=== PATIENT | female | born 1960 | race Caucasian/White ===

== ENCOUNTER 2019-05-30 | Outpatient (CLI) | payer OTHER | END 2019-05-30 07:45 | disposition home or self-care (01) ==

== ENCOUNTER 2020-02-05 01:42 | Emergency (ER) | payer OTHER ==
[2020-02-05 01:48] VITALS: BP 115/65
--- NOTE | 2020-02-05 01:54 | ED Physician Documentation ---
History of Present Illness - Stated complaint Stated Complaint: RT LEG PX/FALL - Chief complaint Chief Complaint: General - History obtained from History obtained from: Patient (Patient is a 59-year-old female who tripped and fell and landed on her right lower extremity she is complaining of right lower extremity pain reports she is unable to bear weight. Denies any head or neck pain denies any loss of consciousness.) Review of Systems Constitutional: reports: Reviewed and negative Eyes: reports: Reviewed and negative Ears: reports: Reviewed and negative Nose: reports: Reviewed and negative Throat: reports: Reviewed and negative Cardiac: reports: Reviewed and negative Respiratory: reports: Reviewed and negative GI: reports: Reviewed and negative : reports: Reviewed and negative Skin: reports: Reviewed and negative Musculoskeletal: reports: Extremity pain Neurologic: reports: Reviewed and negative Psychiatric: reports: Reviewed and negative Endocrine: reports: Reviewed and negative Immunocompromised: reports: Reviewed and negative PD PAST MEDICAL HISTORY - Past Medical History Past Medical History: Yes Cardiovascular: None, Hypertension Respiratory: None - Past Surgical History 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 - Present Medications Home Medications: Ambulatory Orders Medication Instructions Recorded Confirmed Dicyclomine HCl [Bentyl] 20 mg PO Q6H PRN #20 tablet 01/21/16 Hydrocodone/Acetaminophen [[place] 1 each PO Q6H PRN #20 tablet 01/21/16 5-325 Tablet] amLODIPine [Norvasc] 5 mg PO DAILY 01/21/16 01/21/16 Hydrocodone/Acetaminophen [[place] 1 each PO Q6HR PRN #10 tablet 02/05/20 5-325 Tablet] Ondansetron Odt [Zofran Odt] 4 mg TL Q6H PRN #10 tablet 02/05/20 - Allergies Allergies/Adverse Reactions: Allergies Allergy/AdvReac Type Severity Reaction Status Date / Time No Known Drug Allergies Allergy Verified 02/05/20 01:46 - Social History Does the pt smoke?: Yes Smoking Status: Current every day smoker Does the pt drink ETOH?: No Does the pt have substance abuse?: No - POLST Patient has POLST: No PD ED PE NORMAL - Vitals Vital signs reviewed: Yes - General General: Alert and oriented X 3, No acute distress, Well developed/nourished - HEENT HEENT: Atraumatic, PERRL, Moist mucous membranes - Neck Neck: Supple, no meningeal sign - Cardiac Cardiac: RRR, No murmur, Strong equal pulses - Respiratory Respiratory: No respiratory distress, Clear bilaterally - Abdomen Abdomen: Normal bowel sounds, Soft, Non tender, Non distended - Back Back: No CVA TTP, No spinal TTP - Derm Derm: Normal color, Warm and dry, No rash - Extremities Extremities: No deformity, Other (Tenderness over the right proximal fibular head no gross deformity compartments are soft palpable DP and PT pulses cap refill less than 2 seconds sensations intact to light touch unable to bear weight) - Neuro Neuro: Alert and oriented X 3, photographic intelligence officer 2-12 intact, No motor deficit, No sensory deficit, Normal speech - Psych Psych: Normal mood, Normal affect Results - Vitals Vitals: Vital Signs - 24 hr 02/05/20 02/05/20 02/05/20 01:46 01:59 02:04 Temperature 37 C Heart Rate 79 Respiratory 16 18 18 Rate Blood Pressure 115/65 O2 Saturation 94 02/05/20 03:11 Temperature Heart Rate Respiratory 17 Rate Blood Pressure O2 Saturation Oxygen O2 Source Room air Procedures - Splint (location) right Splint applied by: Tech Type of splint: Fiberglass, Long leg, Posterior Other: Patient tolerated well, No complications, Neurovascular intact, Good alignment, Crutches provided PD MEDICAL DECISION MAKING - ED course Complexity details: considered differential (History and exam are concerning for right proximal fibular head fracture.), d/w patient, other (Patient reexamined and updated on her imaging imaging confirms suspicion of fibular head injury it shows a Right proximal fibular head nondisplaced oblique fracture.Patient will be immobilized in Ortho-Glass splint posterior and kept nonweightbearing until she follows up with orthopedic surgery crutches provided for the patient) Departure - Departure Disposition: 01 Home, Self Care Clinical Impression: Fibula fracture Qualifiers: Encounter type: initial encounter Fibula location: proximal Fracture type: closed Fracture morphology: other fracture Laterality: right Qualified Code(s): S82.831A - Other fracture of upper and lower end of right fibula, initial encounter for closed fracture Condition: Stable Instructions: ED Fx Lower Ext Follow-Up: Marisa Kimball ARNP, [facility] [Primary Care Provider] - [facility] [Provider Group] - 02/05/20 Prescriptions: Hydrocodone/Acetaminophen [[place] 5-325 Tablet] 1 each PO Q6HR PRN #10 tablet PRN Reason: Pain Ondansetron Odt [Zofran Odt] 4 mg TL Q6H PRN #10 tablet PRN Reason: Nausea / Vomiting Comments: call ortho today to schedule a follow up, use crutches and splint until evaluated by orthopedic surgeon or your primary care provider. Discharge Date/Time: 02/05/20 03:12
--- NOTE | 2020-02-05 02:33 | XRAY Report ---
Reason: pain Procedure Date: 02/05/2020 Accession Number: [id number] / [id number] Procedure: XR - Tib/Fib RT CPT Code: Final Report FULL RESULT: EXAM: RIGHT TIBIA/FIBULA AND ANKLE RADIOGRAPHY EXAM DATE: 02/05/2020 02:23 AM CLINICAL HISTORY: Right lower leg and ankle pain, injury. COMPARISON: LEG LOWER RT 02/05/2020 2:01 AM. TECHNIQUE: 3 views of the ankle and 2 views of the lower leg. FINDINGS: Bones: Nondisplaced oblique fracture of the right proximal fibular metaphysis. No acute fracture in the ankle identified. Possible distal fibular remote fracture. Joints: No knee or ankle malalignment. Soft Tissues: Normal. No soft tissue swelling. IMPRESSION: 1. Nondisplaced oblique fracture of the right proximal fibular metaphysis. 2. No acute fracture seen in the ankle. RADIA
--- NOTE | 2020-02-05 02:33 | XRAY Report ---
Reason: pain Procedure Date: 02/05/2020 Accession Number: [id number] / [id number] Procedure: XR - Ankle 3 View RT CPT Code: Final Report FULL RESULT: EXAM: RIGHT TIBIA/FIBULA AND ANKLE RADIOGRAPHY EXAM DATE: 02/05/2020 02:23 AM CLINICAL HISTORY: Right lower leg and ankle pain, injury. COMPARISON: LEG LOWER RT 02/05/2020 2:01 AM. TECHNIQUE: 3 views of the ankle and 2 views of the lower leg. FINDINGS: Bones: Nondisplaced oblique fracture of the right proximal fibular metaphysis. No acute fracture in the ankle identified. Possible distal fibular remote fracture. Joints: No knee or ankle malalignment. Soft Tissues: Normal. No soft tissue swelling. IMPRESSION: 1. Nondisplaced oblique fracture of the right proximal fibular metaphysis. 2. No acute fracture seen in the ankle. RADIA
[2020-02-05] MEDS: HYDROcod/ACETAM 5/325 MG TABLET PO STA (02:46)
== END 2020-02-05 03:12 | disposition home or self-care (01) ==
LOC: ED 01:42
DX: S82.831A Other fracture of upper and lower end of right fibula, initial encounter for closed fracture (principal); W18.39XA Other fall on same level, initial encounter; I10 Essential (primary) hypertension; F17.210 Nicotine dependence, cigarettes, uncomplicated
CPT/HCPCS: 29505; 73590; 73610; 99283; A9270

== ENCOUNTER 2020-03-14 10:12 | Outpatient (CLI) | payer OTHER ==
--- NOTE | 2020-03-15 09:18 | XRAY Report ---
Reason: RIGHT PROXIMAL TIBIA FRACTURE Procedure Date: 03/14/2020 Accession Number: [id number] / [id number] Procedure: WCP - Tib/Fib RT CPT Code: Final Report FULL RESULT: EXAM: RIGHT TIBIA/FIBULA RADIOGRAPHY EXAM DATE: 03/14/2020 10:12 AM. CLINICAL HISTORY: RIGHT PROXIMAL TIBIA FRACTURE. COMPARISON: LEG LOWER RT 02/05/2020 2:01 AM. TECHNIQUE: 2 views. FINDINGS: Bones: Right fibular neck fracture with some interval callus formation. Fracture line remains visible. No significant displacement. No additional fracture demonstrated. Joints: The visualized knee and ankle joints are normal. No effusions. Soft Tissues: Normal. No soft tissue swelling. IMPRESSION: Partial healing of right fibular neck fracture. RADIA
== END 2020-03-14 10:13 | disposition home or self-care (01) ==
LOC: DI.WCP 10:12
PROVIDERS: ATTEND Orthopaedic Surgery
DX: S82.831D Other fracture of upper and lower end of right fibula, subsequent encounter for closed fracture with routine healing (principal)

== ENCOUNTER 2023-04-18 10:04 | Outpatient (CLI) | payer BC | END 2023-04-18 23:59 | disposition left against medical advice (07) | LOC: EMS 10:04 | DX: R06.02 Shortness of breath (principal); R61 Generalized hyperhidrosis; R42 Dizziness and giddiness; R23.2 Flushing ==

== ENCOUNTER 2023-04-18 10:48 | Emergency (ER) | payer BC, OTHER ==
--- NOTE | 2023-04-18 12:09 | XRAY Report ---
PROCEDURE: Chest 1 View X-Ray INDICATIONS: Chest Pain TECHNIQUE: One view of the chest was acquired. COMPARISON: Chest x-ray 01/21/2016 FINDINGS: Surgical changes and devices: Left axillary clips. Lungs and pleura: No pleural effusions or pneumothorax. Lungs are clear. Lungs are hyperexpanded suggestive of COPD. Mediastinum: Mediastinal contours appear normal. Heart size is normal. Bones and chest wall: No suspicious bony lesions. Overlying soft tissues appear unremarkable. IMPRESSION: No acute cardiopulmonary process. Reviewed by: Mary Matthews MD on 04/18/2023 12:08 PM PDT Approved by: Mary Matthews MD on 04/18/2023 12:08 PM PDT Station ID: [id number]
[2023-04-18 12:10] LABS: BASOPHILS # (AUTO) 0.1 10^3/uL (0.0-0.1); BASOPHILS % (AUTO) 0.7 %; EOSINOPHILS # (AUTO) 0.1 10^3/uL (0.0-0.7); EOSINOPHILS % (AUTO) 0.6 %; HCT - HEMATOCRIT 43.9 % (37.0-47.0); HGB - HEMOGLOBIN 14.7 g/dL (12.0-16.0); LYMPHOCYTES % (AUTO) 22.7 %; MEAN CORPUSCULAR HGB CONC 33.5 g/dL (32.0-36.0); MEAN CORPUSCULAR VOLUME 95.4 fL (81.0-99.0); MEAN PLATELET VOLUME 8.4 fL (7.9-10.8); MONOCYTES # (AUTO) 0.8 10^3/uL (0.0-1.0); MONOCYTES % (AUTO) 9.3 %; NEUTROPHILS # (AUTO) 5.7 10^3/uL (1.5-6.6); NEUTROPHILS % (AUTO) 66.4 %; PLT - PLATELET COUNT 299 10^3/uL (130-450); RED CELL DISTRIBUTION WIDTH 12.1 % (12.0-15.0); WHITE BLOOD COUNT 8.6 x10^3/uL (4.8-10.8)
--- NOTE | 2023-04-18 12:18 | ED Physician Documentation ---
History of Present Illness - Stated complaint Stated Complaint: BRIELLEA/ROXANNA - Chief complaint Chief Complaint: Resp - Additonal information Additional information: 62-year-old female presents the emergency department for evaluation of feeling generally unwell. States that about 3 days ago she began having some dry cough congestion and thought she had a head cold but this morning she developed sudden onset rigors and had a difficult time breathing. She states 12 years ago she had a hypertensive crisis that resulted in a heart attack. Her symptoms today were similar to then. Patient is a daily tobacco user 1 pack/day. She also drinks about a sixpack of beer daily. She denies any fevers, chest pain, nausea or vomiting. No diarrhea or urinary symptoms. She takes amlodipine only and is followed by MIGUEL Kee. 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 - Present Medications Home Medications: Ambulatory Orders Medication Instructions Recorded Confirmed Dicyclomine HCl [Bentyl] 20 mg PO Q6H PRN #20 tablet 01/21/16 Hydrocodone/Acetaminophen [[place] 1 each PO Q6H PRN #20 tablet 01/21/16 5-325 Tablet] amLODIPine [Norvasc] 5 mg PO DAILY 01/21/16 01/21/16 Hydrocodone/Acetaminophen [[place] 1 each PO Q6HR PRN #10 tablet 02/05/20 5-325 Tablet] Ondansetron Odt [Zofran Odt] 4 mg TL Q6H PRN #10 tablet 02/05/20 - Allergies Allergies/Adverse Reactions: Allergies Allergy/AdvReac Type Severity Reaction Status Date / Time No Known Drug Allergies Allergy Verified 04/18/23 10:55 - Social History Does the pt smoke?: Yes Smoking Status: Current every day smoker Does the pt drink ETOH?: No Does the pt have substance abuse?: No - POLST Patient has POLST: No PD ED PE NORMAL - General General: Alert and oriented X 3, Well developed/nourished - HEENT HEENT: Atraumatic - Neck Neck: Supple, no meningeal sign - Cardiac Cardiac: RRR (Normal sinus rhythm on the monitor.), No murmur, Strong equal pulses - Respiratory Respiratory: No respiratory distress, Clear bilaterally - Abdomen Abdomen: Normal bowel sounds, Soft, Non tender, Non distended - Back Back: No CVA TTP - Derm Derm: Normal color, Warm and dry, No rash - Extremities Extremities: No deformity, Normal ROM s pain - Neuro Neuro: Alert and oriented X 3, cytotechnologist/histotechnologist 2-12 intact Eye Opening: Spontaneous Motor: Obeys Commands Verbal: Oriented GCS Score: 15 - Psych Psych: Normal mood Results - Vitals Vitals: Vital Signs - 24 hr 04/18/23 04/18/23 10:52 12:24 Temperature 36.6 C Heart Rate 90 79 Respiratory 20 22 Rate Blood Pressure 131/76 H 131/66 H O2 Saturation 96 97 Oxygen O2 Source Room air Oxygen Flow Rate 2 - EKG (time done) 1145 EKG releavant findings:: EKG personally interpreted by author of this note. Relevant findings are: Rate: Rate (enter#) (77) Rhythm: NSR [place]: Normal Intervals: Normal PA. No: Prolonged QT QRS: Normal Ischemia: Normal ST segments Compare to prior EKG: Old EKG unavailable Computer interpretation: Disagree with computer - Labs Labs: Laboratory Tests 04/18/23 04/18/23 04/18/23 12:04 12:04 12:04 WBC 8.6 RBC 4.60 Hgb 14.7 Hct 43.9 MCV 95.4 MCH 32.0 H MCHC 33.5 RDW 12.1 Plt Count 299 MPV 8.4 Neut # (Auto) 5.7 Lymph # (Auto) 2.0 [place] # (Auto) 0.8 Eos # (Auto) 0.1 Baso # (Auto) 0.1 Absolute Nucleated RBC 0.00 Nucleated RBC % 0.0 Sodium 138 Potassium 4.2 Chloride 104 Carbon Dioxide 26 Anion Gap 8.0 BUN 14 Creatinine 0.8 Estimated GFR (MDRD) 73 L Glucose 98 Calcium 9.4 Total Bilirubin 0.5 AST 21 ALT 16 Alkaline Phosphatase 58 Troponin I High Sens < 2.3 L Total Protein 8.3 H Albumin 4.5 Globulin 3.8 Albumin/Globulin Ratio 1.2 Lipase 36 Urine Color Urine Clarity Urine pH Ur Specific [place] Urine Protein Urine Glucose (UA) Urine Ketones Urine Occult Blood Urine Nitrite Urine Bilirubin Urine Urobilinogen Ur Leukocyte Esterase Urine RBC Urine WBC Ur Squamous Epith Cells Urine Bacteria Urine Casts Urine Mucus Ur Microscopic Review Urine Culture Comments 04/18/23 12:28 WBC RBC Hgb Hct MCV MCH MCHC RDW Plt Count MPV Neut # (Auto) Lymph # (Auto) [place] # (Auto) Eos # (Auto) Baso # (Auto) Absolute Nucleated RBC Nucleated RBC % Sodium Potassium Chloride Carbon Dioxide Anion Gap BUN Creatinine Estimated GFR (MDRD) Glucose Calcium Total Bilirubin AST ALT Alkaline Phosphatase Troponin I High Sens Total Protein Albumin Globulin Albumin/Globulin Ratio Lipase Urine Color DARK YELLOW Urine Clarity CLEAR Urine pH 5.0 Ur Specific [place] >=1.030 H Urine Protein 100 H Urine Glucose (UA) NEGATIVE Urine Ketones TRACE Urine Occult Blood NEGATIVE Urine Nitrite NEGATIVE Urine Bilirubin NEGATIVE Urine Urobilinogen 0.2 (NORMAL) Ur Leukocyte Esterase NEGATIVE Urine RBC 0-5 Urine WBC 0-3 Ur Squamous Epith Cells FEW Squamous Urine Bacteria Rare Urine Casts 3-5 Hyaline Casts Urine Mucus Few Strands Ur Microscopic Review INDICATED Urine Culture Comments NOT INDICATED - Rads (name of study) cxr Relevant Findings:: Final report received (No acute cardiopulmonary process) PD Medical Decision Making - ED course Complexity details: reviewed results, re-evaluated patient, d/w patient ED course: Well-appearing 62-year-old female presents emergency department for feeling generally unwell for the last several days. She has had some cough and congestion. Later this morning she began to have some generalized shakiness and felt short of air. She reports that the symptoms were similar to when she had a heart attack due to hypertensive urgency about 12 years ago. On presentation to the emergency department she is alert and well-appearing. She has no respiratory distress. She is afebrile and normotensive with a blood pressure of 120/76. EKG shows sinus rhythm. Her cardiopulmonary auscultation was unremarkable. I did obtain a chest x-ray which showed no signs of pneumonia, pneumothorax, pleural effusion or cardiomegaly. CBC, electrolytes and troponin were all without acute worrisome findings per my interpretation. Her EKG was also sinus rhythm. Clinically history and exam is not consistent with a hypertensive emergency, ACS. I do suspect she has a mild viral URI. Patient does drink and smoke heavily. I have encouraged her to discuss these concerns with her PCP though clinically the patient does not appear to have signs of withdrawal. She is discharged home in stable condition with usual emergent return precautions discussed. Departure - Departure Disposition: 01 Home, Self Care Clinical Impression: Cough Qualifiers: Cough type: acute Qualified Code(s): R05.1 - Acute cough Condition: Stable Record reviewed to determine appropriate education?: Yes Comments: As discussed at the bedside here in the emergency department today your vital signs have been normal. Your chest x-ray did not show any findings of pneumonia or other worrisome features. Your labs, troponin and EKG were all normal. I am I suspect that the cause of your symptoms is likely a virus or head cold. In general I recommend that you get plenty of rest and drink lots of liquids. You can take any [id number] cough medications if you feel that they would be helpful. I encourage you to think about your tobacco and alcohol use. Return to the ER if you develop any sudden severe chest pain, have shortness of air or fainting episodes. As always discussed this ED visit with your primary care doctor.
[2023-04-18 12:22] LABS: ALBUMIN 4.5 g/dL (3.2-5.5); ALBUMIN/GLOBULIN RATIO 1.2 (1.0-2.2); BILIRUBIN,TOTAL 0.5 mg/dL (0.2-1.0); CALCIUM 9.4 mg/dL (8.5-10.3); CREATININE 0.8 mg/dL (0.4-1.0); POTASSIUM 4.2 mmol/L (3.5-5.0); TOTAL PROTEIN 8.3 g/dL (6.7-8.2)
[2023-04-18 12:28] VITALS: BP 131/66
[2023-04-18 12:36] LABS: GLUCOSE, URINE (UA) NEGATIVE (NEGATIVE); KETONES,URINE (UA) TRACE mg/dL (NEGATIVE); LEUKOCYTE ESTERASE, URINE NEGATIVE (NEGATIVE); NITRITE,URINE NEGATIVE (NEGATIVE); OCCULT BLOOD,URINE NEGATIVE (NEGATIVE); PROTEIN,URINE 100 mg/dL (NEGATIVE); UROBILINOGEN,URINE 0.2 (NORMAL) E.U./dL (NORMAL)
[2023-04-18 12:46] LABS: BILIRUBIN,URINE NEGATIVE (NEGATIVE); CLARITY,URINE CLEAR (CLEAR); ICTOTEST,URINE NEGATIVE
[2023-04-18 12:48] LABS: BACTERIA,URINE Rare /HPF (None Seen); CASTS, URINE 3-5 Hyaline Casts /LPF; MUCUS,URINE Few Strands; RBC,URINE 0-5 /HPF (0-5); SQUAMOUS EPITHELIAL CELL,UR FEW Squamous (<= Few); WBC,URINE 0-3 /HPF (0-5)
== END 2023-04-18 13:16 | disposition home or self-care (01) ==
LOC: ED 10:48
DX: R05.1 Acute cough (principal); I10 Essential (primary) hypertension
CPT/HCPCS: 36415; 80053; 81001; 81003; 83690; 84484; 85025; 87086; 93005; 99283; 99284